=== PATIENT | male | born 1950 | race Caucasian/White ===

== ENCOUNTER 2016-12-09 15:43 | Observation (INO) | payer OTHER ==
--- NOTE | 2016-12-09 16:00 | CPEKG ---
Heart Rate: 65 RR Interval: 923 P-R Interval: 168 QRSD Interval: 94 QT Interval: 432 QTC Interval: 450 P [place]: 55 QRS [place]: -30 T Wave [place]: 100 EKG Severity - ABNORMAL ECG - EKG Impression: SINUS RHYTHM EKG Impression: LEFT AXIS DEVIATION EKG Impression: CONSIDER ANTEROSEPTAL INFARCT EKG Impression: NONSPECIFIC T ABNORMALITIES, LATERAL LEADS Electronically Signed By: Sherrie Hickman 09-Dec-2016 23:12:53
[2016-12-09] MEDS ORDERED: NS 500 ML IV ONE (16:12)
[2016-12-09 16:17] LABS: % IMMATURE GRANULYOCYTES 0.5 % (0.0-1.1); ABSOLUTE IMMATURE GRANULOCYTES 0.05 10^3/uL (0.00-0.10); ADD DIFF? NO; ADD MORPH? NO; ADD SCAN? NO; ATYPICAL LYMPHOCYTE FLAG 0 (0-99); FRAGMENT RBC FLAG 0 (0-99); HEMATOCRIT 42.2 % (40.0-51.0); HEMOGLOBIN 14.3 g/dL (13.7-17.5); LEFT SHIFT FLG 0 (0-99); LIPEMIA HEMOLYSIS FLAG 90 (0-99); MEAN CELL HEMOGLOBIN 28.9 pg (27.9-34.1); MEAN CELL HEMOGLOBIN CONCENTR. 33.9 g/dL (32.4-36.7); MEAN CELL VOLUME 85.3 fL (81.5-99.8); MEAN PLATELET VOLUME 10.1 fL (8.7-11.7); PLATELET CLUMPS FLAG 20 (0-99); PLATELET COUNT 215 10^3/uL (150-400); RED BLOOD CELL COUNT 4.95 10^6/uL (4.40-6.38); RED CELL DISTRIBUTION WIDTH 13.4 % (11.5-15.2)
--- NOTE | 2016-12-09 16:27 | EDPHY ---
H & P Stated Complaint: Stood from chair, passed out;SOB, feels cold, +nausea Time Seen by Provider: 12/09/16 16:14 HPI/ROS: CHIEF COMPLAINT: syncope HISTORY OF PRESENT ILLNESS: This patient is a pleasant 66 year old male with history of lung cancer and prior myocardial infarction arriving with his son following a syncopal episode after lunch today. He is visiting from [place], and arrived seven days ago. 15 minutes after finishing a large meal, he was sitting and felt the urge for a bowel movement. He endorses slight lightheadedness at this time. He stood and walked outside, but felt very hot, and returned to sitting. The next thing he remembers is waking on the ground. He was able to get up and walk, and then went to the bathroom. No melena or hematochezia. He has been on antihypertensives for 27 years and denies any prior syncopal episodes. His son at bedside states he was unconscious for about one minute, and seemed "uneasy" following the incident. The patient endorses nausea. He denies chest pain, shortness of breath, or pain or swelling in his legs. No recent trauma. REVIEW OF SYSTEMS: A 10 point review of systems was performed and is negative with the exception of the elements mentioned in the history of present illness. - Personal History Current Tetanus Diphtheria and Acellular Pertussis (TDAP): Yes - Medical/Surgical History PMH: Hypertension (Norvasc, Altace), NH with angioplasty (around 40 y/o), Lung cancer (5 years ago, received chemotherapy, radiation, upper left lobectomy), Stage 3 kidney failure, COPD Hx Cardiac Disease: Yes Other PMH: NH w/ angioplasty. lung CA, post lobectomy, RENAL FAILURE r/t chemo , appy - Social History Smoking Status: Former smoker Additional Social History: Visiting from [place]. . Son at bedside. - Physical Exam Exam: General Appearance: Alert, no distress Eyes: Pupils equal and round, no conjunctival pallor or injection. 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 ENT, Mouth: Mucous membranes moist Neck: Normal inspection Respiratory: Lungs are clear to auscultation Cardiovascular: Regular rate and rhythm Gastrointestinal: Abdomen is soft and non- tender Neurological: A&O, nonfocal, normal gait Skin: Warm and dry, no rash Extremities: Nontender, no pedal edema Psychiatric: Mood and affect normal Constitutional: Initial Vital Signs Temperature (C) 36.5 C 12/09/16 15:55 Heart Rate 78 12/09/16 15:55 Respiratory Rate 18 12/09/16 15:55 Blood Pressure 85/64 L 12/09/16 15:55 O2 Sat (%) 98 12/09/16 15:55 O2 Delivery Mode Nasal Cannula O2 (L/minute) 2 Allergies/Adverse Reactions: No Known Allergies Allergy (Unverified 12/09/16 15:54) Home Medications: Medication Instructions Recorded Albuterol [Proventil Inhaler HFA 1 - 2 puffs IH Q4H PRN 12/09/16 (*)] Ramipril [Altace] 10 mg PO DAILY 12/09/16 Sertraline HCl [Zoloft 50mg (*)] 50 mg PO HS 12/09/16 Tiotropium Br/Olodaterol HCl 2 puffs IH DAILY 12/09/16 [Stiolto Respimat Inhal Sidell] amLODIPine BESYLATE [Amlodipine 10 mg PO DAILY 12/09/16 Besylate] Aspirin EC [Aspirin EC 81 mg (*)] 81 mg PO DAILY #30 tab 12/10/16 Medical Decision Making - Diagnostics EKG Interpretation: EKG interpreted by me reveals sinus rhythm, rate 65. Poor R wave progression, nonspecific T abnormalities in lateral leads. PVC. Interpretation: abnormal EKG Imaging Results: CXR: elevated hemidiaphragm, no acute changes. Imaging: Discussed imaging studies w/ on call Radiologist, I viewed and interpreted images myself ED Course/Re-evaluation: 66 year old male with history of hypertension, prior NH, lung cancer, and renal failure presents following a syncopal episode earlier today. Clinical history is concerning because of onset of symptoms while sitting and because of prolonged episode of unresponsiveness, even when he was on the ground. Physical exam unremarkable. He is mildly hypotensive at 98/76. Plan for labs including CBC, BMP, and Troponin. He states his baseline creatinine is around 5 , baseline BUN around 17. His diagnosis was last week. He states his most recent cardiac testing was normal. Creatinine elevated at 2.4, BUN elevated at 40. Anion gap present, unclear etiology. IV fluids 1 L given. 17:09 Discussed x-ray results with Dr. Torres, radiologist. Negative for acute processes. Chronic changes noted. 17:[address] Mosqueda, hospitalist. He accepts admission to PCU for syncope. Differential Diagnosis: Differential diagnosis includes though is not limited to cardiac dysrhythmia, CVA, TIA, GI bleed, sepsis, hypoglycemia. - Data Points Laboratory Results: Laboratory Results 12/09/16 16:05 12/09/16 16:05 Medications Given: Discontinued Medications Acetaminophen (Tylenol) 650 mg PO Q4HRS PRN PRN Reason: Pain, Mild/Fever, Can Take PO Stop: 06/07/17 18:04 Last Admin: 12/10/16 08:09 Dose: 650 mg Amlodipine Besylate (Norvasc) 10 mg PO DAILY RAY Stop: 06/08/17 08:59 Last Admin: 12/10/16 08:10 Dose: 10 mg Sodium Chloride (Ns) 500 mls @ 1,000 mls/hr IV EDNOW ONE PRN Reason: Protocol Stop: 12/09/16 16:41 Last Admin: 12/09/16 16:15 Dose: 500 mls Miscellaneous Medication (Tiotropium Br/Olodaterol Hcl [Stiolto Respimat Inhal Sidell]) 2 puffs IH DAILY RAY Stop: 06/08/17 08:59 Last Admin: 12/10/16 08:53 Dose: Not Given Sertraline HCl (Zoloft) 50 mg PO HS ARY Stop: 06/07/17 20:59 Last Admin: 12/09/16 20:48 Dose: 50 mg Departure - Departure Disposition: [facility] Inpatient Acute Clinical Impression: Syncope Qualifiers: Syncope type: unspecified Qualified Code(s): R55 - Syncope and collapse Condition: Good Report Scribed for: Sherrie Hickman Report Scribed by: Antonia Beck Date of Report: 12/09/16 Time of Report: 16:24 Physician Review and Approval Statement: 12/09/16 16:24 Portions of this note were transcribed by a medical donation professional. I personally performed a history, physical exam, medical decision making, and confirmed accuracy of information the transcribed note.
[2016-12-09 16:31] LABS: ANION GAP 18 mEq/L (8-16); CALCIUM 9.9 mg/dL (8.5-10.4); CARBON DIOXIDE 15 mEq/l (22-31); CHLORIDE 110 mEq/L (97-110); CREATININE 2.4 mg/dL (0.7-1.3); GLOMERULAR FILTRATION RATE 27; GLUCOSE 112 mg/dL (70-100); POTASSIUM 4.1 mEq/L (3.5-5.2); SODIUM 143 mEq/L (134-144)
[2016-12-09 16:43] LABS: TROPONIN I < 0.012 ng/mL (0.000-0.034)
[2016-12-09] MEDS ORDERED: ONDANSETRON DISINTEGRATING 4 MG TAB PO PRN (18:05)
[2016-12-09] MEDS ORDERED: ONDANSETRON 4 MG/2 ML VIAL IVP PRN (18:05)
[2016-12-09] MEDS ORDERED: ACETAMINOPHEN 325 MG TAB PO PRN (18:05)
[2016-12-09] MEDS ORDERED: NS 1,000 ML IV SCH (18:15)
--- NOTE | 2016-12-09 19:03 | GHP ---
[f rep st] HISTORY AND PHYSICAL DATE OF ADMISSION: 12/09/2016 HISTORY OF PRESENT ILLNESS: The patient is a pleasant 66-year-old gentleman with a history of galvez ry artery disease with a remote angioplasty, and lung cancer, status post lobectomy, who presents tod ay with a syncopal episode. He was at a restaurant in [place] and had a very large lunch loaded with carbohydrates which is not typical for him. He had not eaten breakfast. Afterwards he began to fee l flushed, weak, like he needed to have a very large bowel movement. He went outside to take a few d eep breaths. He did not feel better probably because of the heat. Went back inside, had a syncopal episode. Upon coming to, it sounds like he was perhaps passed out for a minute or so. He was a bit lethargic. He was noted to be hypotensive when he arrived here. He had no antecedent palpitations or chest pain. He has had no previous coronary problems since an a ngioplasty done in his 40s. He has good exercise tolerance. He does not have a history of pulmonary embolism. His father of a heart attack at age 56, but does not sound like an arrhythmic . In the emergency department, he is alert, conversant, not complaining of chest pain. REVIEW OF SYSTEMS: Complete 10-point review of systems conducted. Negative except as noted in the H PI. PAST MEDICAL HISTORY: 1. Stage 3 chronic kidney disease, felt secondary to chemotherapy. 2. History of lung cancer, status post chemotherapy and left upper lobe lobectomy. 3. Remote coronary artery disease. 4. Depression. 5. Hypertension. ALLERGIES: He has no known drug allergies. HOME MEDICATIONS: Norvasc, Ramipril, sertraline, omeprazole. SOCIAL HISTORY: He is retired. He lives in [place] in [place]. His son lives here in [facility]. FAMILY HISTORY: As in the HPI. PHYSICAL EXAMINATION: VITAL SIGNS: Temp 36.5. Blood pressure 85/64, now 106/67. Pulse 78, breathi ng 18 times a minute. 98% on room air. GENERAL: No acute distress. Conversant. HEENT: Sclerae a nicteric. Oropharynx clear. Mucous membranes moist. NECK: Supple, without lymphadenopathy or JVD. LUNGS: Clear to auscultation bilaterally. HEART: S1, S2, without murmurs. ABDOMEN: Soft, nonte nder, nondistended. LOWER EXTREMITIES: Without edema. Calves nontender. SKIN: Without rash. OMI ROLOGIC: Nonfocal. LABORATORY DATA: White count 10.5, hematocrit 42, platelets are 215,000. Sodium 143, potassium 4.1, chloride 110, bicarb 15, BUN 40, creatinine 2.4. His baseline is unknown, but he does have known ki dney disease. Glucose is 112. His troponin is less than 0.012. IMAGING/INVESTIGATIONS: Chest x-ray interpreted by me shows evidence of markedly elevated left hemid iaphragm with large gastric air/fluid level, and evidence of previous left upper lobectomy. EKG inte rpreted by me shows sinus rhythm with axis deviation, normal intervals, diffuse flat Ts, b ut otherwise no ST or T-wave changes. I have discussed the case Dr. Sherrie Hickman. ASSESSMENT/PLAN: A 66-year-old gentleman who presents with syncope and metabolic acidosis. 1. Syncope. I suspect almost certainly this is vasovagal syncope given the large meal, the need to have a bowel movement, and the prodrome and the post symptoms. He is at risk for this given his bloo d pressure medicine and the fact he may be over treated. We will cycle troponins, follow him on tele metry. 2. Metabolic acidosis. It may be due to uremia, although, there is not a clear reason as to why. H is belly is soft. He does not appear to be dehydrated. He certainly has eaten. This is not ketosis . We will repeat it in the morning. The patient does not have sepsis. 3. Elevated hemidiaphragm. I think this is just a dramatic postoperative finding in a patient who h ad kind of a bulky lunch and has some air in his stomach. 4. Prophylaxis. Pharmacologic prophylaxis indicated if in the hospital longer than 24 hours. 5. Disposition. Observation status. /[id number]/MODL
[2016-12-09] MEDS ORDERED: ALBUTEROL 200 PUFFS/18 GM MDI IH PRN (20:18)
[2016-12-09] MEDS ORDERED: SERTRALINE HCL 50 MG TAB PO SCH ×2 (21:00)
[2016-12-09 22:53] VITALS: TEMP 97.9
[2016-12-10 04:38] VITALS: RESP 18
[2016-12-10 05:59] LABS: ANION GAP 11 mEq/L (8-16); CALCIUM 9.2 mg/dL (8.5-10.4); CARBON DIOXIDE 17 mEq/l (22-31); CHLORIDE 113 mEq/L (97-110); CREATININE 1.6 mg/dL (0.7-1.3); GLOMERULAR FILTRATION RATE 43; GLUCOSE 92 mg/dL (70-100); POTASSIUM 4.1 mEq/L (3.5-5.2); SODIUM 141 mEq/L (134-144)
[2016-12-10 06:09] LABS: TROPONIN I < 0.012 ng/mL (0.000-0.034)
[2016-12-10 07:54] VITALS: O2SAT 93
[2016-12-10] MEDS ORDERED: SERTRALINE HCL 50 MG TAB PO SCH (09:00)
[2016-12-10] MEDS ORDERED: Tiotropium Br/Olodaterol Hcl [Stiolto Respimat Inhal Spray] 2 PUFF IH SCH (09:00)
--- NOTE | 2016-12-10 11:08 | ECHO ---
[email or web address] [address] [address] Main: [phone] Fax: Transthoracic Echocardiogram Name: GENO HARE MR#: [id number] Study Date: 12/10/2016 Study Time: 09:49 AM Date of : 1950 Age: 66 year(s) Height: 182.9 cm (72 in.) Weight: 79.38 kg (175 lb.) BSA: 2.01 m2 Gender: Male Examination: Echo Indication: Syncope/History of MT and upper left lung lobectomy, HTN Image Quality: Contrast: Requested by: Christos Thompson BP: 124 mmHg/91 mmHg Heart Rate: Rhythm: Indication: Syncope/History of MT and upper left lung lobectomy, HTN Procedure Staff Ordering Physician: E[employer]A [employer] Administrator: Talita Payne Reading Physician: Patrice Cruz Conclusions: Normal global systolic LV function. The basal inferoseptal The mitral valve is normal in appearance and function. Trivial mitral valve regurgitation. The aortic valve is normal in appearance and function. Mild tricuspid regurgitation is present. The pulmonary artery pressure is normal. Trivial pericardial effusion. Measurements: Chambers Valvular Assessment AV/MV Valvular Assessment TV/PV Normal Normal Normal Name Value Range Name Value Range Name Value Range Ao Brianne (MM): 3.4 cm (2.2 cm-3.7 AV Vmax: 1.07 m/s (1 m/s-1.7 TR Vmax: 2.82 mm/s ( - ) cm) m/s) TR PGmax: 32 mmHg ( - ) LVDd (2D): 4.0 cm (4.2 cm-5.9 AV maxP mmHg ( - ) syst. PAP: 37 mmHg ( - ) cm) MV E Vmax: 0.40 cm/s ( - ) MV A Vmax: 0.83 cm/s ( - ) MV E/A: 0.48 ( - ) Continued Measurements: Valvular Assessment AV/MV Valvular Assessment TV/PV Name Value Name Value MV E/E' Septal: 8.70 CVP (est.): 5 MV E/E' Lateral: 8.00 Patient: GENO HARE Study Date: 12/10/2016 Page 1 of 2 09:49 AM Findings: Left Ventricle: Normal size left ventricle. Normal global systolic LV function. The basal inferoseptal segment is hypokinetic. All remaining scored wall segments are normal. EF estimate is 60-65%. Right Ventricle: Normal size right ventricle. Left Atrium: The left atrium is normal in size. Right Atrium: The right atrium is normal in size. Mitral Valve: The mitral valve is normal in appearance and function. Trivial mitral valve regurgitation. Aortic Valve: The aortic valve is normal in appearance and function. Tricuspid Valve: The tricuspid valve is normal in appearance and function. Mild tricuspid regurgitation is present. The pulmonary artery pressure is normal. Pulmonic Valve: The pulmonic valve is normal in appearance and function. Trivial pulmonic valve regurgitation. Great Vessels: The aorta is normal. Pericardium: Trivial pericardial effusion. (No Signature Object) Wall Motion Scores -1 - Not Scored, 0 - Unknown, 1 - Normal or hyperkinesia, 2 - Hypokinesia, 3 - Akinesia, 4 - Dyskinesia, 5 - Aneurysm Patient: GENO HARE Study Date: 12/10/2016 Page 2 of 2 09:49 AM [id number]
[2016-12-10 11:21] VITALS: BP 102/72; PULSE 72
--- NOTE | 2016-12-10 13:23 | PDDCSUM ---
Discharge Summary Discharge Summary: DISCHARGE SUMMARY FOLLOW-UP ITEMS: 1. Compare outpatient echocardiogram to most recent echo, consider outpatient stress test if basal inferoseptal hypokinesis is new 2. Outpatient follow-up basic metabolic profile DATE OF ADMISSION: 12/09/2016 DATE OF DISCHARGE: 12/10/2016 DISCHARGE DIAGNOSES: 1. Suspected vasovagal syncopal episode 2. Acute kidney injury on chronic kidney disease 3. Known coronary artery disease CONSULTATIONS: None PROCEDURES / IMAGING: Echocardiogram demonstrating normal ejection fraction, basal inferoseptal hypokinesis, no other significant abnormalities CHIEF COMPLAINT: Acute syncope SUBJECTIVE: Patient is feeling well at time discharge, he has not had any recurrence of symptoms PHYSICAL EXAM ON DISCHARGE: Systolic blood pressure 120, heart rate 70, afebrile overnight, satting well on room air, lungs are clear to auscultation bilaterally, he is alert awake oriented x3, no apparent distress LABS ON DISCHARGE: Creatinine 1.6 potassium 4.1 D-dimer negative with troponin negative x3 HOSPITAL COURSE BY PROBLEM: 1. Suspected vasovagal syncope. Patient presented with syncopal episode most likely secondary to vasovagal occurrence in the setting of large meal. This was evidenced by chest x-ray demonstrating elevated left diaphragm with fluid and gas pattern in the stomach, most likely stimulating his vagus nerve. The patient was ruled out for acute coronary syndrome with negative cardiac enzymes and no ischemic changes on EKG, he was ruled out for pulmonary embolism with negative D-dimer, he was ruled out for ongoing hypovolemia with negative orthostatics, he was ruled out for significant valvular abnormality with a relatively normal echocardiogram with normal ejection fraction. We educated the patient regarding vasovagal syncope and potential provoking factors including large meals, make duration, bowel movements. 2. Acute kidney injury on chronic kidney disease, suspect stage III. Patient's serum creatinine level was elevated at 2.4 presentation, most likely secondary to renal hypoperfusion in the setting of a vasovagal episode with likely a hypotension. He received IV fluids and his serum creatinine level improved to 1.6. His YESSI-inhibitor was held for 1 day, and can resume tomorrow. His exact baseline is somewhat unclear, but will recommend outpatient follow-up metabolic profile upon returning to his primary care provider. He is currently eating and drinking well and should be able to maintain his volume status. 3. Known chronic coronary artery disease. Patient reportedly had a myocardial infarction 22 years ago and he is not currently on any anti-platelet medication. I recommended that he be on aspirin 81 mg daily and discuss this further with his primary care provider. His echo did demonstrate focal wall hypokinesis, notably basal inferoseptal, and we do not currently have an echocardiogram for comparison. That being said, the patient was not experiencing any active chest discomfort throughout hospitalization, and this is most likely an area of scarring from his previous myocardial infarction 20 years ago. I recommended that the patient have his most recent outpatient echo compared to this 1, if there are any discrepancies, he should undergo Lexiscan stress test. DISCHARGE MEDICATIONS: Please see official discharge medication reconciliation sheet in chart , aspirin 81 mg daily, continue all other home medications. DISCHARGE INSTRUCTIONS: Please follow up with primary care provider upon returning home, and avoid large meals if possible in the future. If he experienced recurrence of symptoms , please adjust her body into a safe position in case you do experience overt syncope.
--- NOTE | 2016-12-10 17:05 | ASDISCHSUM ---
Discharge Information Plan Status:Home with No Needs Medically Cleared to Leave:12/10/2016 Discharge Date:12/10/2016 02:29 PM CM D/C Disposition:Home, Routine, Self-Care ADT D/C Disposition:Home, Routine, Self-Care Projected Discharge Date:12/10/2016 12:00 AM Transportation at D/C: Discharge Delay Reason: Follow-Up Date:12/10/2016 12:00 AM Discharge Slot: Final Diagnosis: Placement Information Patient Contact Information Contact Name:CHAY Relationship: Address:[address] Work Phone: Hannah:SHAKIRA Zarate Phone: [facility]/Zip Code:[place] [address] Email: Financial Information Financial Class:Medicare Advantage Plans Primary Plan Desc:[facility] ADVANTAGE PLANS Primary Plan Number:[id number] Secondary Plan Desc: Secondary Plan Number: Assessment Information Intervention Information Intervention Type:*DOOLEY-Signed Date of Service:12/10/2016 10:27 AM Patient Type:Observation Staff Member:Shyla Ruiz Hours: Discipline: Severity: Comment:
== END 2016-12-10 14:29 | disposition home or self-care (01) ==
LOC: F2W 18:28
PROVIDERS: ADMIT Internal Medicine; ATTEND Internal Medicine
DX: R55 Syncope and collapse (principal); N17.9 Acute kidney failure, unspecified; N18.3 Chronic kidney disease, stage 3 (moderate); E87.2 Acidosis; I25.10 Atherosclerotic heart disease of native coronary artery without angina pectoris; J44.9 Chronic obstructive pulmonary disease, unspecified; I25.2 Old myocardial infarction; I12.9 Hypertensive chronic kidney disease with stage 1 through stage 4 chronic kidney disease, or unspecified chronic kidney disease; F32.9 Major depressive disorder, single episode, unspecified; Z92.21 Personal history of antineoplastic chemotherapy; Z87.891 Personal history of nicotine dependence; Z85.118 Personal history of other malignant neoplasm of bronchus and lung
CPT/HCPCS: 71020; 93005; 93306; 99285; G0378